=== PATIENT | female | born 1980 | race Two or more races ===

== ENCOUNTER 2016-09-11 18:23 | Emergency (ER) | payer MEDICAID ==
[2016-09-11] MEDS ORDERED: ONDANSETRON 4 MG/2ML 2 ML VIAL ONE (19:24)
[2016-09-11] MEDS ORDERED: OXYCODONE HCL 5 MG TABLET ONE (19:24)
[2016-09-11] MEDS ORDERED: LACTATED RINGERS 1,000 ML ONE (19:24)
[2016-09-11 19:58] LABS: CALCIUM 9.4 mg/dL (8.6-10.3)
[2016-09-11 20:03] LABS: ABSOLUTE NEUTROPHIL COUNT 11.3 K/mm3 (1.8-7.7); BASO # 0.1 K/mm3 (0.0-0.2); BASO % 0.3 % (0.2-1.0); EOS # 0.6 (0.0-0.5); EOS % 3.8 % (0.9-2.9); HEMATOCRIT 43.3 % (37.0-47.0); HEMOGLOBIN 14.2 gm/l (12.0-16.0); IMM NEUT # 0.1 K/mm3 (0-0.2); IMM NEUT% 0.4 % (0-1); LYMPH # 2.2 (1.0-4.8); LYMPH % 14.8 % (15-45); MEAN CELL VOLUME 89.6 fl (81.0-99.0); MEAN CORPUSCULAR HEMOGLOBIN 29.4 pg (27.0-31.0); MEAN CORPUSCULAR HGB CONC 32.8 g/dl (33.0-37.0); MEAN PLATELET VOLUME 10.5 fl (7.4-10.4); MONO # 0.7 (0.0-0.8); MONO % 4.8 % (4-12); NEUT % 75.9 % (43-75); PLATELET COUNT 212 K/mm3 (130-400); RED CELL DISTRIBUTION WIDTH 12.2 % (11.5-14.5)
[2016-09-11 20:32] LABS: URINE BILIRUBIN NEGATIVE (NEGATIVE); URINE BLOOD 4+ (NEGATIVE); URINE GLUCOSE (UA) NEGATIVE (NEGATIVE); URINE LEUKOCYTE ESTERASE NEGATIVE (NEGATIVE); URINE NITRITE NEGATIVE (NEGATIVE); URINE PROTEIN TRACE (NEGATIVE); URINE UROBILINOGEN NORMAL (0-1 mg/dl)
[2016-09-11 20:36] LABS: URINE APPEARANCE CLOUDY; URINE COLOR PINK
[2016-09-11 20:50] LABS: INR 0.94; PARTIAL THROMBOPLASTIN TIME 25.7 SECONDS (24.5-33.0); PROTHROMBIN TIME 9.9 SECONDS (9.3-11.4)
[2016-09-11 20:50] LABS: URINE RBC >100 /hpf; URINE WBC 0-1 /hpf
[2016-09-11 20:51] LABS: URINE BACTERIA 0
[2016-09-11] MEDS ORDERED: MISOPROSTOL 200 MCG TABLET ONE (22:55)
--- NOTE | 2016-09-12 09:46 | US ---
OB COMP <14 WKS: 09/11/2016 8:19 PM CLINICAL HISTORY: Positive test. Patient is on Depo-Provera control. Vaginal bleeding. Comparison: None STUDY: Transabdominal and transvaginal imaging was performed with multiple grayscale, color-flow and duplex Doppler imaging. FINDINGS: Uterus: Orientation: Anteverted. Size: 11.6 x 6.3 x 6.9 cm Mass: None. The uterus appears edematous and enlarged. There is mild increased vascularity within the myometrium, adjacent to the endometrial cavity. Cervix: Fluid and debris is noted within the lower uterine segment and cervix. Findings could relate to blood products Endometrium: Endometrial thickness measures 4 mm. Ovaries: Size: Right measures 2.9 x 1.5 x 1.8 cm; left measures 3.0 x 1.9 x 2.2 cm. Arterial and venous blood flow: right ovary: Present, left ovary: Present Mass: None. Adnexa: Mass: None. Cul-de-sac: No free fluid. IMPRESSION: No evidence of gestational sac within the uterus. No adnexal mass or free fluid in the pelvis. Heterogeneous material is seen at the level the lower uterine segment/cervix worrisome for hematoma and blood products. Findings could relate to spontaneous , with possible areas of retained products of conception. Given the lack of a definite intrauterine gestation, patient is considered to have a of unknown location. Ectopic cannot be excluded. Follow-up with serial beta hCG and ultrasound would be recommended. Preliminary report was provided by Osei at approximately 2223 hours on 09/11/2016.
== END 2016-09-11 23:21 | disposition home or self-care (01) ==
LOC: ED 18:23
DX: O03.9 Complete or unspecified spontaneous abortion without complication (principal); Z3A.01 Less than 8 weeks gestation of pregnancy
CPT/HCPCS: 84702; 84703; 85025; 80048; 85730; 85610; 81001; 76801; 99284; 96374; 96361 ×3; 99283; A9270 ×2; J2405; J7120